=== PATIENT | female | born 1980 | race American Indian/Alaskan Native ===

== ENCOUNTER 2016-08-06 10:22 | Outpatient (CLI) | payer MEDICARE ==
--- NOTE | 2016-08-07 09:40 | Mammography Report ---
BILATERAL DIGITAL SCREENING MAMMOGRAM with CAD: 08/06/16 10:22:00 CLINICAL: Routine screening. COMPARISON:07/24/15 FINDINGS: The breasts are heterogeneously dense, which may obscures small masses. A right posterior inner asymmetry on the CC view requires additional imaging. There is questionable correlation on the MLO view.No architectural distortion or suspicious calcifications.The left breast is negative. IMPRESSION: Right asymmetry requiring further workup. BI-RADS CATEGORY: 0 -- Additional Imaging Evaluation Required RECOMMENDATION: Recall for right spot compression views and right breast ultrasound. ACR BI-RADS MAMMOGRAPHIC CODES: 0 = Needs additional imaging evaluation; 1 = Negative; 2 = Benign; 3 = Probably benign; 4 = Suspicious; 5 = Malignant; 6 = Known biopsy-proven malignancy COMMENT: 1. Dense breast tissue, i.e., adenosis, fibrocystic changes, etc., may obscure an underlying neoplasm. 2. Approximately 10% of cancers are not detected with mammography. 3. A negative mammography report should not delay biopsy if a clinically suspicious mass is present. COMMENT: Patient follow-up letters are generated via our [employer] application.
== END 2016-08-06 10:23 | disposition home or self-care (01) ==
LOC: SPVWC 10:22
PROVIDERS: ATTEND Family Medicine
DX: Z12.31 Encounter for screening mammogram for malignant neoplasm of breast (principal)
CPT/HCPCS: 77067; G0202

== ENCOUNTER 2020-05-07 09:20 | Outpatient (CLI) | payer MEDICARE ==
--- NOTE | 2020-05-07 10:48 | Mammography Report ---
BILATERAL DIGITAL DIAGNOSTIC MAMMOGRAM WITH CAD CONVENTIONAL, 05/07/2020 LEFT LIMITED BREAST ULTRASOUND CLINICAL INFORMATION / INDICATION: Left palpable abnormality by physician TECHNIQUE: Digital bilateral mammographic imaging was performed. Spot compression views were obtained . Limited ultrasound was performed. This examination was interpreted with the benefit of Computer-Aid ed Detection (CAD) analysis. COMPARISON: Bilateral mammogram 08/06/2016 FINDINGS: Breast Density: The breasts are heterogeneously dense, which may obscure small masses. MAMMOGRAPHIC FINDINGS: No significant abnormalities are seen including the area of palpable concern o n the left. ULTRASOUND FINDINGS: Targeted ultrasound evaluation was performed of the area of interest. In the 4:0 0 position, 4 cm from the nipple, at the site of palpable concern, a 7 mm cyst is seen which is minim ally complicated with a slight septation and minimal internal echoes. No vascularity or shadowing are seen. No wall thickening is noted. No other lesions are seen. IMPRESSION: Small probably benign slightly, located cyst is seen at the site of palpable concern with no mammographic abnormalities Follow up recommendation: Unless there is overriding clinical concern, follow-up left breast ultrasou nd in 6 months BI-RADS Category 3: Probably Benign. Followup in 6 months. A "normal" or negative report should not discourage follow up or biopsy of a clinically significant f inding. A written summary of these findings will be mailed to the patient. The patient will be entered into a mammography reporting system which will generate a reminder letter for the patient's next appointmen t at the appropriate interval. According to the [employer], yearly mammograms are recommended starting at age 40 and continuing as long as a woman is in good health. Breast MRI is recommended for women with an josefa roximately 20-25% or greater lifetime risk of breast cancer, including women with a strong family his tory of breast or ovarian cancer and women who have been treated for Hodgkin's disease. Signer Name: Dmitriy Ochoa MD Signed: 05/07/2020 10:44 AM Workstation Name: [id number]
== END 2020-05-07 09:21 | disposition home or self-care (01) ==
LOC: MAMMO 09:20
PROVIDERS: ATTEND Family Medicine
DX: N60.02 Solitary cyst of left breast (principal); Z87.898 Personal history of other specified conditions
CPT/HCPCS: 77066